=== PATIENT | male | born 1945 | race Caucasian/White ===

== ENCOUNTER → 2018-11-03 | Outpatient (CLI) | payer OTHER, MEDICARE | LOC: BMCIMAGING 12:02 | PROVIDERS: ATTEND Internal Medicine | DX: Z01.811 Encounter for preprocedural respiratory examination (principal); I70.0 Atherosclerosis of aorta ==

== ENCOUNTER → 2018-12-09 | Outpatient (CLI) | payer OTHER, MEDICARE | LOC: FIMAGING 11:43 ==